=== PATIENT | female | born 1990 | race Caucasian/White ===

== ENCOUNTER 2018-04-30 16:19 | Inpatient (IN) | payer OTHER ==
[~2018-04-30] VITALS: Ht 157.5 cm; Wt 61.2 kg
[~2018-04-30 16:19] MED LIST: CARAFATE1 GM/10 ML PO; MAALOX MAXIMUM355 ML PO; PRENATAL TABLE1 EACH
[2018-04-30] MEDS ORDERED: PRENATAL TABLE1 EACH PO (17:47)
[2018-05-06] MEDS ORDERED: NIFEDIPINE ER30 MG PO (06:46)
[2018-05-06] MEDS ORDERED: VISTARIL50 MG PO (06:46)
== END 2018-05-06 14:01 | disposition home or self-care (01) | DRG 780 ==
LOC: LDR 16:19 → OB/GYN 16:19
PROC: BY4CZZZ Ultrasonography of Second Trimester, Single Fetus (ICD-10-PCS; principal; 2018-04-30)
PROC: 4A1HXCZ Monitoring of Products of Conception, Cardiac Rate, External Approach (ICD-10-PCS; 2018-04-30)
DX: O47.02 False labor before 37 completed weeks of gestation, second trimester (principal); O99.012 Anemia complicating pregnancy, second trimester; O21.0 Mild hyperemesis gravidarum

== ENCOUNTER 2018-07-12 05:58 | Inpatient (IN) | payer OTHER ==
[~2018-07-12] VITALS: Ht 157.5 cm; Wt 62.6 kg
[~2018-07-12 05:58] MED LIST changes: +NIFEDIPINE ER30 MG PO; +PRENATAL TABLE1 EACH PO; +VISTARIL50 MG PO
== END 2018-07-14 09:55 | disposition home or self-care (01) | DRG 775 ==
LOC: LDR 05:58 → OB/GYN 09:31
PROC: 0KQM0ZZ Repair Perineum Muscle, Open Approach (ICD-10-PCS; principal; 2018-07-12)
PROC: 0UQMXZZ Repair Vulva, External Approach (ICD-10-PCS; 2018-07-12)
PROC: 10E0XZZ Delivery of Products of Conception, External Approach (ICD-10-PCS; 2018-07-12)
PROC: 4A1HXCZ Monitoring of Products of Conception, Cardiac Rate, External Approach (ICD-10-PCS; 2018-07-12)
PROC: 4A033R1 Measurement of Arterial Saturation, Peripheral, Percutaneous Approach (ICD-10-PCS; 2018-07-12)
DX: O70.1 Second degree perineal laceration during delivery (principal); O71.82 Other specified trauma to perineum and vulva; Z37.0 Single live birth; O24.410 Gestational diabetes mellitus in pregnancy, diet controlled; Z3A.37 37 weeks gestation of pregnancy

== ENCOUNTER 2023-10-02 19:21 | Emergency (ER) | payer OTHER ==
[~2023-10-02] VITALS: Ht 157.5 cm; Wt 63.5 kg
[2023-10-02 21:08] LABS: HEMOGLOBIN 12.6 g/dL (12.0-15.00); MEAN CORPUSCULAR HEMOGLOBIN 28.5 pg (27.00-32.0); PLATELET COUNT 254 K/uL (150-450); RED CELL DISTRIBUTION WIDTH 14.3 % (11.5-14.5)
[2023-10-02 21:16] LABS: PH,URINE 6.5 (5.0-8.0); URINE APPEARANCE Clear; URINE BILIRRUBIN Negative (NEGATIVE); URINE BLOOD Negative; URINE COLOR Yellow; URINE GLUCOSE Negative (NEGATIVE); URINE LEUKOCYTE Negative; URINE NITRATE Negative; URINE PROTEIN Negative (NEGATIVE)
[2023-10-02 21:19] LABS: URINE EPITHELIAL CELLS 37.7 uL (0.0-38.8); URINE WBC 12.3 uL (0.0-23.2)
[2023-10-02 21:53] LABS: ALBUMIN 3.7 gm/dL (3.4-5.0); BILIRUBIN TOTAL 0.19 mg/dL (0.3-1.2); CALCIUM 8.7 mg/dL (8.5-10.1); CREATININE SERUM 0.63 mg/dL (0.55-1.02); GFR 110.22; GLOBULINA 3.9 G/DL (2.4-3.5); POTASSIUM 3.69 mEq/L (3.5-5.1); TOTAL PROTEIN 7.6 gm/dL (6.4-8.2)
== END 2023-10-03 01:32 | disposition home or self-care (01) ==
LOC: ER 19:22
PROVIDERS: Emergency Medicine
DX: O99.611 Diseases of the digestive system complicating pregnancy, first trimester (principal); K92.89 Other specified diseases of the digestive system